=== PATIENT | male | born 1985 | race Caucasian/White ===

== ENCOUNTER 2018-02-02 17:41 | Emergency (ER) | payer OTHER ==
[~2018-02-02] VITALS: Ht 165.1 cm; Wt 93.0 kg
--- NOTE | 2018-02-02 18:45 | ED GENERAL ADULT ---
History of Present Illness General Chief Complaint: Wheezing/Asthma Stated Complaint: PT IS HAVING A ASTHMA ATTACK Vital Signs & Intake/Output Vital Signs & Intake/Output Vital Signs Date Time Temp Pulse Resp B/P B/P Pulse O2 O2 Flow FiO2 Mean Ox Delivery Rate 02/02 1751 98.1 109 20 146/94 99 Room Air Allergies Coded Allergies: epinephrine (ANAPHYLAXIS 02/02/18) Triage Note: PT STATES HE IS HAVING AN ASTHMA ATTACK 02 SAT 99% RA. PT STATES HE LEFT HIS INHALER HOME AND FEELS IF HE NEEDS IT. Past History Travel History Traveled to [place] past 21 day No Medical History Respiratory: asthma Psychosocial History What is your primary language Dutch Tobacco Use: Current Daily Use Daily Tobacco Use Amount/Type: =< 4 Cigarettes daily ETOH Use: denies use Illicit Drug Use: marijuana Progress Plan of Care: Orders Procedure Date/time Status TROPONIN LEVEL 02/02 182 Active COMPREHENSIVE METABOLIC PANEL 02/02 1822 Active CBC WITHOUT DIFFERENTIAL 02/02 1822 Active EKG 02/02 175 Active Current Medications Sig/Mee Start time Last Medication Dose Stop Time Status Admin Albuterol Sulfate 3 ML ONCE ONE 02/020 UNVr (Proventil) 02/02 190 Ipratropium [place] 2.5 ML ONCE ONE 02/02 1900 UNVr (Atrovent) 02/02 190 Prednisone 40 MG ONCE ONE 02/02 1900 UNVr 02/02 190 Departure Departure Condition: Stable Departure Forms: Customer Survey General Discharge Information
--- NOTE | 2018-02-02 18:56 | ED DYSPNEA/ASTHMA COMPLAINT ---
History of Present Illness General Chief Complaint: Wheezing/Asthma Stated Complaint: PT IS HAVING A ASTHMA ATTACK Source: patient Exam Limitations: no limitations Vital Signs & Intake/Output Vital Signs & Intake/Output Vital Signs Date Time Temp Pulse Resp B/P B/P Pulse O2 O2 Flow FiO2 Mean Ox Delivery Rate 02/03 1944 98.4 105 18 141/87 98 Room Air 02/03 1940 98 02/02 1751 98.1 109 20 146/94 99 Room Air Allergies Coded Allergies: epinephrine (ANAPHYLAXIS 02/02/18) Triage Note: PT STATES HE IS HAVING AN ASTHMA ATTACK 02 SAT 99% RA. PT STATES HE LEFT HIS INHALER HOME AND FEELS IF HE NEEDS IT. Triage Nurses Notes Reviewed? yes HPI: Patient presents for evaluation of gradual onset of shortness of breath while at work today. 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 He does have a history of asthma but did not have his inhalers today. The patient describes his shortness of breath as moderate in intensity and worse with exertion. (Valerie BEAN,Jarett Dorantes) Past History Travel History Traveled to [place] past 21 day No Medical History Any Pertinent Medical History? see below for history Respiratory: asthma Surgical History Surgical History: non-contributory Psychosocial History What is your primary language Fijian Tobacco Use: Current Daily Use Daily Tobacco Use Amount/Type: =< 4 Cigarettes daily ETOH Use: denies use Illicit Drug Use: marijuana Family History Hx Contributory? No (Jarett Padilla MD) Review of Systems Review of Systems Constitutional: Reports: no symptoms. EENTM: Reports: no symptoms. Respiratory: Reports: see HPI. Cardiovascular: Reports: no symptoms. GI: Reports: no symptoms. Genitourinary: Reports: no symptoms. Musculoskeletal: Reports: no symptoms. Skin: Reports: no symptoms. Neurological/Psychological: Reports: no symptoms. Hematologic/Endocrine: Reports: no symptoms. Immunologic/Allergic: Reports: no symptoms. All Other Systems: Reviewed and Negative (Jarett Padilla MD) Physical Exam Physical Exam Respiratory: see below Comments: Gen.: Well-nourished, well-developed, mild respiratory distress. Speaking in full sentences. Head: Normocephalic, atraumatic. Eyes: Normal inspection bilaterally Ears: Normal inspection bilaterally Nose: Normal inspection Throat/mouth : Moist mucosa Neck: Supple, full range of motion, no goiter Heart: Regular rate and rhythm, no murmurs rubs or gallops Lungs: Decreased air entry bilaterally without wheezes rales or rhonchi Chest: Nontender Back: Normal range of motion Abdomen: Soft, nontender, nondistended, normal bowel sounds Extremities: Normal range of motion grossly, equal radial pulses, no cyanosis clubbing or edema Neurologic: Cranial nerves grossly intact, speech is clear Skin: warm and dry Psychiatric: Calm, cooperative, no apparent delusions or hallucinations Core Measures ACS in differential dx? No CVA/TIA Diagnosis No Sepsis Present: No Sepsis Focused Exam Completed? 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 (Valerie BEAN,Jarett Dorantes) Comments: PT FEELING MUCH BETTER. LUNGS CTA B/L. HE DID NOT BRING HIS INHALER FROM HOME. HE IS IN [place] A JOB. (Ce BEAN,Jeffrey Keller) Departure Departure Condition: Stable Clinical Impression Primary Impression: Asthma exacerbation Departure Forms: Customer Survey General Discharge Information (Valerie BEAN,Jarett Dorantes) Departure Disposition: HOME OR SELF CARE Additional Instructions: USE YOUR INHALER NEEDED RETURN FOR ANY WORSENING SYMPTOMS OR FOR ANY OTHER CONCERNS Prescriptions: Current Visit Scripts Albuterol Sulfate (Proair Hfa) 2 PUF INH Q4-6 PRN PRN ASTHMA #1 INHAL (Ce BEAN,Jeffrey Keller) Critical Care Note Critical Care Note Critical Care Time: non-applicable (Jarett Padilla MD)
--- NOTE | 2018-02-02 19:01 | RADIOLOGY REPORT ---
EXAMINATION: XR CHEST CLINICAL INFORMATION: Evaluate for pneumonia. Effusion. COMPARISON: No relevant prior imaging. TECHNIQUE: 2 views of the chest were obtained. FINDINGS: Lungs are well-expanded. No focal consolidative disease, pleural effusion, or pneumothorax. The cardiac silhouette and upper mediastinal contours are normal. No acute osseous finding. IMPRESSION: Unremarkable chest radiograph. No consolidative disease or effusion.
[2018-02-02 19:44] VITALS: BP 141/87
[2018-02-02] MEDS ORDERED: PROAIR HFA8.5 GM INH (20:06)
[2018-02-02 20:17] LABS: ABSOLUTE BASOPHIL COUNT 0 /CUMM (0.0-0.2); ABSOLUTE EOSINOPHIL COUNT 0 /CUMM (0.0-0.7); ABSOLUTE GRANULOCYTE CT 12.3 /CUMM (1.4-6.5); ABSOLUTE LYMPH COUNT 1.7 /CUMM (1.2-3.4); BASOPHIL % 0.2 % (0.0-2.0); EOSINOPHIL % 0.1 % (0-5); GRANULOCYTE % 81.8 % (42.2-75.2); HEMATOCRIT 48.4 % (42-52); MEAN CORPUSCULAR HGB 29.8 PG (27.0-31.0); MEAN CORPUSCULAR HGB CONC 34.1 G/DL (33.0-37.0); MEAN CORPUSCULAR VOLUME 87.5 FL (80.0-94.0); MEAN PLATELET VOLUME 6.9 FL (7.4-10.4); PLATELET COUNT 337 /CUMM (130-400); RBC DISTRIBUTION WIDTH 14.8 % (11.5-14.5); RED BLOOD CELL CT 5.53 /CUMM (4.70-6.10)
== END 2018-02-02 20:07 ==
LOC: ERH 17:41
PROVIDERS: Physician Assistant
DX: J45.901 Unspecified asthma with (acute) exacerbation (principal); F17.210 Nicotine dependence, cigarettes, uncomplicated; R06.02 Shortness of breath
CPT/HCPCS: 1263; 1395; 71046; 93005; 93010